=== PATIENT | male | born 1980 | race African-American/Black ===

== ENCOUNTER 2018-03-28 14:53 | Emergency (ER) | payer MEDICAID, OTHER ==
[~2018-03-28] VITALS: Ht 188 cm; Wt 93.0 kg
[~2018-03-28 14:53] MED LIST: ACYCLOVIR400 MG ORAL; CEPHALEXIN500 MG ORAL; CYCLOBENZAPRINE10 MG ORAL; DOXYCYCLINE MO100 MG ORAL; ETODOLAC500 MG PO; IBUPROFEN600 MG ORAL; NKM; NORCO 5-325 TA1 EACH ORAL; PROTONIX40 MG ORAL; ZANTAC150 MG ORAL
[2018-03-28 15:11] VITALS: BP 125/72
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
[2018-03-28] MEDS ORDERED: HYDROcodone/Acetamin 7.5/325 tab ORAL ONE (15:30)
[2018-03-28] MEDS ORDERED: IBUPROFEN600 MG ORAL (16:05)
[2018-03-28] MEDS ORDERED: NORCO 5-325 TA1 EACH ORAL (16:05)
[2018-03-28 16:29] VITALS: BP 125/72
--- NOTE | 2018-03-28 17:43 | Diagnostic Imaging Report ---
Indication: Trauma Technique: XRAY Hand Complete R Comparison: None Findings: No evidence of acute fracture or dislocation. Alignment and joint spaces are preserved. No radiopaque foreign body seen. Impression: No acute fracture or dislocation.
== END 2018-03-28 16:31 | disposition home or self-care (01) ==
LOC: EMR 15:10
DX: S63.501A Unspecified sprain of right wrist, initial encounter (principal); S60.221A Contusion of right hand, initial encounter; V86.59XA Driver of other special all-terrain or other off-road motor vehicle injured in nontraffic accident, initial encounter; Y92.89 Other specified places as the place of occurrence of the external cause; I10 Essential (primary) hypertension
CPT/HCPCS: 99284

== ENCOUNTER 2019-11-17 15:57 | Emergency (ER) | payer MEDICAID ==
[~2019-11-17] VITALS: Ht 188 cm; Wt 90.7 kg
[2019-11-17] MEDS ORDERED: Albuterol ud Inhalation HHN ONE (16:30)
--- NOTE | 2019-11-17 17:21 | Emergency Room Report ---
History of Present Illness General Chief Complaint: Dyspnea/Respdistress Source: Patient Present Illness HPI 39-year-old male presents to the emergency department complaining of increased coughing and feeling short of breath x2 weeks. Patient states on occasion he will have some wheezing and he feels as though he cannot get air out completely. Patient denies history of asthma or allergies. He denies chest pain. Patient reports he is noticing his symptoms more after strenuous activities. He denies dizziness or syncope. He denies personal or familial cardiac history. Patient denies recent illness, fevers, chills, recent travel, increase in sputum production, palpitations or anxiousness. He denies any aggravating or relieving factors at this time. Denies any other significant past medical history. Reports regular smoking hx of THC. Allergies: Coded Allergies: ACETAMINOPHEN (Verified Allergy, Unknown, 11/17/19) Patient History Past Medical History: see triage record Past Surgical History: none Pertinent Family History: none Social History: Reports: smoking - marijuana Reviewed Nursing Documentation: PMH: Agreed; PSxH: Agreed Nursing Documentation-PMH Past Medical History: No Stated History Hx Hypertension: Yes Review of Systems All Other Systems: negative except mentioned in HPI Physical Exam Vital Signs Date Time Temp Pulse Resp B/P (MAP) Pulse Ox O2 Delivery O2 Flow Rate FiO2 11/17/19 16:07 98.2 77 16 125/68 (87) 97 Room Air 11/17/19 16:38 21 Sp02 EP Interpretation: reviewed, normal General Appearance: no apparent distress, alert, GCS 15, non-toxic Head: normocephalic, atraumatic Eyes: bilateral eye normal inspection, bilateral eye PERRL ENT: hearing grossly normal, normal voice Neck: full range of motion Respiratory: chest non-tender, lungs clear, no respiratory distress, no accessory muscle use, speaking full sentences, wheezing - scant expiratory wheezes, other - no sustantial increase in breathing effort. Cardiovascular #1: regular rate, rhythm, no edema Musculoskeletal: back normal, normal range of motion, gait/station normal, non- tender Neurologic: alert, motor strength/tone normal, oriented x3, sensory intact, responsive, speech normal Psychiatric: judgement/insight normal Lymphatic: no adenopathy Medical Decision Making PA Attestation Dr. Cueva is my supervising Physician whom patient management has been discussed with. Diagnostic Impression: Primary Impression: Acute bronchospasm Additional Impression: Exertional shortness of breath ER Course 39-year-old male presents to the emergency department complaining of increased coughing and feeling short of breath x2 weeks. Patient states on occasion he will have some wheezing and he feels as though he cannot get air out completely. Patient denies history of asthma or allergies. He denies chest pain. Patient reports he is noticing his symptoms more after strenuous activities. He denies dizziness or syncope. He denies personal or familial cardiac history. Patient denies recent illness, fevers, chills, recent travel, increase in sputum production, palpitations or anxiousness. He denies any aggravating or relieving factors at this time. Denies any other significant past medical history. Reports regular smoking hx of THC. He reports familial hx of lung cancer. His father and grandfather both secondary to lung ca. Pt. denies night sweats or changes in weight. Ddx considered but are not limited to URI, pneumonia, PE, RI, Bronchitis, asthma , anxiety reaction just to name a few. Vital signs: Pt.is afebrile VS are WNL H&PE are most consistent with acute bronchospasm. Nontoxic in appearance is not in respiratory distress. Patient does not demonstrate acute impending airway compromise. pt. without cardiac hx, non-tachycardic and NAD does not necessitate cardiac work up at this time. ORDERS: -CXR: WNL ED INTERVENTIONS: --Albuterol Nebulized tx. Pt. reports improvement of his symptoms after nebulized tx. -I do not identify an emergent condition at this time. With current presentation , pt. is stable for close outpatient follow up and conservative treatment. D/ w pt. to return promptly to ED with worsening or new symptoms.- Pt. verbalizes' understanding and agreement with proposed treatment plan.proposed treatment plan. Also d/w pt. that his symptoms could be a manifestation of stress/ anxiety and to follow up with his PCP regarding this differential as well. DISCHARGE: At this time pt. is stable for d/c to home. Will provide printed patient care instructions, and any necessary prescriptions. Care plan and follow up instructions have been discussed with the patient prior to discharge. Chest X-Ray Diagnostic Results Chest X-Ray Diagnostic Results : Chest X-Ray Ordered: Yes # of Views/Limited/Complete: 1 View Indication: Shortness of Breath EP Interpretation: Yes BHARATH Xray: Interpretation reviewed, by supervising MD, and agrees with findings. Interpretation: no consolidation, no effusion, no pneumothorax, no acute cardiopulmonary disease Impression: No acute disease Electronically Signed by: Tyra Mario PA-C Last Vital Signs Date Time Temp Pulse Resp B/P (MAP) Pulse Ox O2 Delivery O2 Flow Rate FiO2 11/17/19 16:38 64 16 100 Room Air 21 55 16 11/17/19 16:07 98.2 125/68 (87) Status: improved Disposition: HOME, SELF-CARE Condition: Stable Patient Instructions: Shortness of Breath Additional Instructions: Take medications as directed. Follow up with a Primary Care Provider in 3-5 days, even if your symptoms have resolved. Return sooner to ED if new symptoms occur, or current symptoms become worse. - Please note that this Emergency Department Report was dictated using [employer] technology software, occasionally this can lead to erroneous entry secondary to interpretation by the dictation equipment. Tyra Mario Nov 17, 2019 17:21
[2019-11-17] MEDS ORDERED: ALBUTEROL SULF8.5 GM INH (17:23)
--- NOTE | 2019-11-17 17:25 | NUR ---
ER DISCHARGE NOTE: Patient is cleared to be discharged per ERMD, pt is aox4, on room air, with stable vital signs. pt was given dc and prescription instructions, pt was able to verbalize understanding, pt is able to ambulate with steady gait. pt took all belongings.
[2019-11-17 17:35] VITALS: BP 125/68
--- NOTE | 2019-11-17 17:58 | Diagnostic Imaging Report ---
EXAM: XR Chest, 1 View CLINICAL HISTORY: PAIN TECHNIQUE: Frontal view of the chest. COMPARISON: None FINDINGS: Hardware: None. Lungs/pleura: Normal. No focal consolidation. No pleural effusion or pneumothorax. Heart/mediastinum: Normal. No cardiomegaly. Soft tissues: Unremarkable. Bones: No acute fracture. Upper abdomen: Normal. IMPRESSION: No acute disease identified.
== END 2019-11-17 17:30 | disposition home or self-care (01) ==
LOC: EMR 16:35
DX: J98.01 Acute bronchospasm (principal); R06.02 Shortness of breath; I10 Essential (primary) hypertension; F12.90 Cannabis use, unspecified, uncomplicated; Z88.6 Allergy status to analgesic agent
CPT/HCPCS: 71045; Z7502; 99283

== ENCOUNTER 2020-06-29 14:00 | Emergency (ER) | payer MEDICAID ==
[~2020-06-29] VITALS: Ht 188 cm; Wt 88.9 kg
[~2020-06-29 14:00] MED LIST changes: +ALBUTEROL SULF8.5 GM INH
[2020-06-29 14:17] VITALS: BP 125/82
[2020-06-29 14:43] LABS: APPEARANCE,URINE CLEAR; BILIRUBIN, URINE NEGATIVE (NEGATIVE); GLUCOSE, URINE (UA) NEGATIVE (NEGATIVE); KETONES,URINE NEGATIVE (NEGATIVE); LEUKOCYTE ESTERASE ,URINE 1+ (NEGATIVE); NITRITE,URINE NEGATIVE (NEGATIVE); PH,URINE 6 (4.5-8.0); PROTEIN,URINE NEGATIVE (NEGATIVE); UROBILINOGEN,URINE NORMAL MG/DL (0.0-1.0)
[2020-06-29 14:44] LABS: COLOR,URINE YELLOW
--- NOTE | 2020-06-29 15:04 | Diagnostic Imaging Report ---
EXAM: US Scrotum CLINICAL HISTORY: PAIN TECHNIQUE: Real-time ultrasound of the scrotum with color Doppler and image documentation. COMPARISON: No relevant prior studies available. FINDINGS: Right testicle: Right testis measures a 4.7 x 2.5 x 3.2 cm. No intratesticular mass lesion or torsion. Left testicle: Left testis measures 4.3 x 2.1 x 3.5 cm. No intratesticular mass lesion or torsion. Epididymides: Heterogeneous and vascular epididymis. Scrotum: Moderate-large bilateral hydroceles. Small left varicoceles. IMPRESSION: Heterogeneous and vascular epididymis. Findings suggest epididymitis.
[2020-06-29] MEDS ORDERED: Lidocaine 1% MPF 10mg/ml 5ml INJ ONE (15:45)
[2020-06-29] MEDS ORDERED: DOXYCYCLINE MO100 MG ORAL (15:50)
[2020-06-29 15:53] VITALS: BP 129/73
--- NOTE | 2020-06-29 18:58 | Emergency Room Report ---
History of Present Illness General Chief Complaint: Pain Source: Patient Present Illness HPI 39-year-old male presents the ED complaining of right testicular pain x2 days. Pain is dull, 7 out of 10, nonradiating. Denies any dysuria. Denies any discharge. Denies sick contacts or recent travel. No other aggravating relieving factors. 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 COVID-19 Screening: Negative COVID-19 COVID-19 Testing Source: nasal Patient History Past Medical History: HTN Past Surgical History: none Pertinent Family History: none Social History: Denies: smoking, alcohol use, drug use Immunizations: UTD Reviewed Nursing Documentation: PMH: Agreed; PSxH: Agreed Nursing Documentation-PMH Past Medical History: No Stated History Hx Hypertension: Yes Review of Systems All Other Systems: negative except mentioned in HPI Physical Exam Vital Signs Date Time Temp Pulse Resp B/P (MAP) Pulse Ox O2 Delivery O2 Flow Rate FiO2 06/29/20 14:07 98.2 77 16 125/82 (96) 100 Room Air Sp02 EP Interpretation: reviewed, normal General Appearance: no apparent distress, alert, GCS 15, non-toxic Head: normocephalic, atraumatic Eyes: bilateral eye normal inspection, bilateral eye PERRL ENT: hearing grossly normal, normal pharynx, no angioedema, normal voice Neck: full range of motion, supple/symm/no masses Respiratory: chest non-tender, lungs clear, normal breath sounds, speaking full sentences Cardiovascular #1: regular rate, rhythm, no edema Cardiovascular #2: 2+ carotid (R), 2+ carotid (L), 2+ radial (R), 2+ radial (L), 2+ dorsalis pedis (R), 2+ dorsalis pedis (L) Gastrointestinal: normal bowel sounds, non tender, soft, non-distended, no guarding, no rebound Rectal: deferred Genitourinary: no CVA tenderness, other - R scrotum Musculoskeletal: back normal, normal range of motion, gait/station normal, non- tender Neurologic: alert, motor strength/tone normal, oriented x3, sensory intact, responsive, speech normal Psychiatric: judgement/insight normal, memory normal, mood/affect normal, no suicidal/homicidal ideation Reflexes: 3+ bicep (R), 3+ bicep (L), 3+ tricep (R), 3+ tricep (L), 3+ knee (R), 3+ knee (L) Skin: no rash Lymphatic: no adenopathy Medical Decision Making Diagnostic Impression: Primary Impression: Varicocele Additional Impressions: Epididymitis Hydrocele Qualified Codes: N43.3 - Hydrocele, unspecified ER Course Hospital Course 39-year-old male presents to ED with right testicular pain/swelling. Differential diagnoses include: hydrocele, varicocele, epididymitis, testicular torsion Clinical course Patient placed on stretcher. After initial history and physical I ordered UA and scrotal ultrasound. UA-normal Ultrasound shows hydroceles, varicocele. epididymitis. No evidence of torsion. Good flow to both testicles. I discussed findings with patient. Reassurance given. Safe for discharge with close outpatient follow-up. I will provide referrals. Given Rocephin in ED. Will discharge with doxycycline Diagnosis - epididymitis, varicocele, hydrocele stable and discharged to home with prescription for Doxycycline. Followup with Urology. Return to ED if symptoms recur or worsen Laboratory Tests Test 06/29/20 14:15 Urine Color Yellow Urine Appearance Clear Urine pH 6 (4.5-8.0) Urine Specific [place] 1.015 (1.005-1.035) Urine Protein Negative (NEGATIVE) Urine Glucose (UA) Negative (NEGATIVE) Urine Ketones Negative (NEGATIVE) Urine Blood Negative (NEGATIVE) Urine Nitrite Negative (NEGATIVE) Urine Bilirubin Negative (NEGATIVE) Urine Urobilinogen Normal MG/DL (0.0-1.0) Urine Leukocyte Esterase 1+ (NEGATIVE) H Urine RBC 0 /HPF (0 - 0) Urine WBC 0-2 /HPF (0 - 0) Urine Squamous Epithelial Cells None /LPF (NONE/OCC) Urine Bacteria None /HPF (NONE) Urine Mucus Occasional /LPF CT/MRI/US Diagnostic Results CT/MRI/US Diagnostic Results : Imaging Test Ordered: Scrotal uS Impression Procedure: US Testicular Scrotum EXAM: US Scrotum CLINICAL HISTORY: PAIN TECHNIQUE: Real-time ultrasound of the scrotum with color Doppler and image documentation. COMPARISON: No relevant prior studies available. FINDINGS: Right testicle: Right testis measures a 4.7 x 2.5 x 3.2 cm. No intratesticular mass lesion or torsion. Left testicle: Left testis measures 4.3 x 2.1 x 3.5 cm. No intratesticular mass lesion or torsion. Epididymides: Heterogeneous and vascular epididymis. Scrotum: Moderate-large bilateral hydroceles. Small left varicoceles. IMPRESSION: Heterogeneous and vascular epididymis. Findings suggest epididymitis. Last Vital Signs Date Time Temp Pulse Resp B/P (MAP) Pulse Ox O2 Delivery O2 Flow Rate FiO2 06/29/20 15:53 98.3 79 19 129/73 98 Room Air Status: improved Disposition: HOME, SELF-CARE Condition: Stable Scripts Doxycycline Monohydrate* (DOXYCYCLINE MONOHYDRATE*) 100 Mg Capsule 100 MG ORAL Q12H, #14 CAP 0 Refills Prov: Jared Senior MD 06/29/20 Referrals: Leeroy Bernal MD NON PHYSICIAN (PCP) Patient Instructions: Hydrocele, Adult, Epididymitis, Varicocele Jared Senior MD Jun 29, 2020 18:57
== END 2020-06-29 15:50 | disposition home or self-care (01) ==
LOC: EMR 14:20
DX: I86.1 Scrotal varices (principal); N43.3 Hydrocele, unspecified; N45.1 Epididymitis; I10 Essential (primary) hypertension; Z88.6 Allergy status to analgesic agent
CPT/HCPCS: 76870; 81003; 96372; J0696; Z7502; 99284

== ENCOUNTER 2020-08-16 15:15 | Emergency (ER) | payer MEDICAID ==
[~2020-08-16] VITALS: Ht 188 cm; Wt 88.5 kg
[2020-08-16 15:24] VITALS: BP 116/77
--- NOTE | 2020-08-16 15:44 | Emergency Room Report ---
History of Present Illness General Chief Complaint: Sore Throat Source: Patient Present Illness HPI 39-year-old male presents to the emergency department complaining of 8 out of 10 severity tender canker sores in the right inner cheek. X3 days. Patient reports history of herpes. Patient reports he typically responds well to acyclovir. He denies fevers or chills. He reports pain with swallowing or drinking anything. He denies neck pain/stiffness. He denies rash on the face near the eyes or nose. No other aggravating or relieving factors at this time. Allergies: Coded Allergies: ACETAMINOPHEN (Verified Allergy, Unknown, 11/17/19) COVID-19 Screening Contact w/high risk pt: No Experienced COVID-19 symptoms?: No COVID-19 Testing performed ARNP: No Patient History Past Medical History: see triage record Past Surgical History: none Pertinent Family History: none Reviewed Nursing Documentation: PMH: Agreed; PSxH: Agreed Nursing Documentation-PMH Past Medical History: No Stated History Hx Hypertension: Yes Review of Systems All Other Systems: negative except mentioned in HPI Physical Exam Vital Signs Date Time Temp Pulse Resp B/P (MAP) Pulse Ox O2 Delivery O2 Flow Rate FiO2 08/16/20 15:20 97.9 86 16 116/77 (90) 99 Room Air Sp02 EP Interpretation: reviewed, normal General Appearance: no apparent distress, alert, GCS 15, non-toxic Head: normocephalic, atraumatic Eyes: bilateral eye normal inspection, bilateral eye PERRL ENT: hearing grossly normal, normal pharynx, normal voice, uvula midline, moist mucus membranes, other - Area with grouped canker sores on the right buccal mucosa. No evidence of lesions on the pharynx. No external labial lesions. Neck: full range of motion Respiratory: chest non-tender, lungs clear, normal breath sounds, no respiratory distress, no wheezing, speaking full sentences Cardiovascular #1: regular rate, rhythm Musculoskeletal: back normal, normal range of motion, gait/station normal, non- tender Neurologic: alert, motor strength/tone normal, oriented x3, sensory intact, responsive, speech normal Psychiatric: judgement/insight normal Skin: no rash Lymphatic: no adenopathy Medical Decision Making PA Attestation Dr. Rivera is my supervising Physician whom patient management has been discussed with. Diagnostic Impression: Primary Impression: Stomatitis, viral ER Course 39-year-old male presents to the emergency department complaining of 8 out of 10 severity tender canker sores in the right inner cheek. X3 days. Patient reports history of herpes. Patient reports he typically responds well to acyclovir. He denies fevers or chills. He reports pain with swallowing or drinking anything. He denies neck pain/stiffness. He denies rash on the face near the eyes or nose. No other aggravating or relieving factors at this time. Ddx considered but are not limited to: pharyngitis, strep, ARNP, ludwigs angina, URI Vital signs: are WNL, pt. is afebrile H&PE are most consistent with: Viral stomatitis of the right buccal mucosa. ORDERS: None required at this time as the diagnosis is clinical ED INTERVENTIONS: -Lidocaine Viscous 5ml DISCHARGE: At this time pt. is stable for d/c to home. Will provide printed patient care instructions, and any necessary prescriptions. Care plan and follow up instructions have been discussed with the patient prior to discharge. Last Vital Signs Date Time Temp Pulse Resp B/P (MAP) Pulse Ox O2 Delivery O2 Flow Rate FiO2 08/16/20 15:24 97.9 16 116/77 99 Room Air 08/16/20 15:20 86 Status: improved Disposition: HOME, SELF-CARE Condition: Stable Scripts Lidocaine HCl 2% Viscous (Lidocaine HCl 2% Viscous) 100 Ml Solution 5 ML ORAL QID, #100 ML Prov: Tyra Mario 08/16/20 Acyclovir* (ACYCLOVIR*) 400 Mg Tablet 400 MG ORAL FIVE TIMES A DAY for 5 Days, #25 TAB 1 Refill Prov: Tyra Mario 08/16/20 Patient Instructions: Canker Sores Additional Instructions: Take medications as directed. Follow up with a Primary Care Provider in 3-5 days, even if your symptoms have resolved. Return sooner to ED if new symptoms occur, or current symptoms become worse. - Please note that this Emergency Department Report was dictated using [employer] liaison technology software, occasionally this can lead to erroneous entry secondary to interpretation by the dictation equipment. Tyra Mario Aug 16, 2020 15:44
[2020-08-16] MEDS ORDERED: Lidocaine 2% Visc 15ml soln ORAL ONE (15:45)
[2020-08-16] MEDS ORDERED: ACYCLOVIR400 MG ORAL (15:46)
[2020-08-16] MEDS ORDERED: LIDOCAINE VISC100 ML ORAL (15:47)
== END 2020-08-16 15:53 | disposition home or self-care (01) ==
LOC: EMR 15:42
DX: K12.1 Other forms of stomatitis (principal); K12.0 Recurrent oral aphthae; Z88.6 Allergy status to analgesic agent; I10 Essential (primary) hypertension
CPT/HCPCS: 99282

== ENCOUNTER 2020-08-20 15:52 | Emergency (ER) | payer MEDICAID ==
[~2020-08-20] VITALS: Ht 188 cm; Wt 86.2 kg
[~2020-08-20 15:52] MED LIST changes: +LIDOCAINE VISC100 ML ORAL
[2020-08-20 16:10] VITALS: BP 140/87
--- NOTE | 2020-08-20 16:11 | Emergency Room Report ---
History of Present Illness General Chief Complaint: Skin Rash/Abscess Source: Patient Present Illness HPI 39-year-old male with history of cold sores ever since he was acute here complaining of worsening and spreading of the sores inside mouth, throat, and inside nasal septum. Patient was seen in [place] ER a week ago with similar symptoms and was given acyclovir and reported acyclovir usually helps. Reports that he still has the sores and now they are spreading. Denies being sexually active in the past 2 months. Denies getting any STD check done in the past 8 months however has been sexually active in the past 5 months. Also denies sores anywhere else. Denies any red conjunctive or joint pain. Denies chest pain shortness of breath, headache and dizziness. Denies any fever and chills. Denies vaping, tobacco smoke, however reports that he smokes marijuana. Allergies: Coded Allergies: ACETAMINOPHEN (Verified Allergy, Unknown, 11/17/19) COVID-19 Screening Contact w/high risk pt: No Experienced COVID-19 symptoms?: No COVID-19 Testing performed ACCOUNTING ADVISORY SERVICES MANAGER: No Patient History Past Medical History: see triage record Past Surgical History: none Pertinent Family History: none Immunizations: UTD Reviewed Nursing Documentation: PMH: Agreed; PSxH: Agreed Nursing Documentation-PMH Past Medical History: No Stated History Review of Systems All Other Systems: negative except mentioned in HPI Physical Exam Vital Signs Date Time Temp Pulse Resp B/P (MAP) Pulse Ox O2 Delivery O2 Flow Rate FiO2 08/20/20 15:53 98.1 84 20 140/87 (104) 98 Room Air Sp02 EP Interpretation: reviewed, normal General Appearance: no apparent distress, alert, GCS 15, non-toxic Head: normocephalic, atraumatic Eyes: bilateral eye normal inspection, bilateral eye PERRL ENT: hearing grossly normal, no angioedema, normal voice, pharyngeal erythema, other - Oral sores, inner upper inner lower lip, inner cheeks, pharynx, and the nasal septum without any pus drainage. Airway is patent Neck: full range of motion, supple, supple/symm/no masses Respiratory: chest non-tender, lungs clear, normal breath sounds, speaking full sentences Cardiovascular #1: regular rate, rhythm, no edema Gastrointestinal: normal bowel sounds, non tender, soft, non-distended, no guarding, no rebound Musculoskeletal: back normal Neurologic: alert, oriented Psychiatric: judgement/insight normal, memory normal, mood/affect normal, no suicidal/homicidal ideation Skin: normal color Lymphatic: no adenopathy Medical Decision Making PA Attestation ALL Diagnosis and treatment plan reviewed and discussed with my supervising physician Dr. Borges Diagnostic Impression: Primary Impression: Stomatitis, viral Additional Impressions: Mouth sores Sore in nose ER Course 39-year-old male with history of cold sores ever since he was acute here complaining of worsening and spreading of the sores inside mouth, throat, and inside nasal septum. Patient was seen in [place] ER a week ago with similar symptoms and was given acyclovir and reported acyclovir usually helps. Reports that he still has the sores and now they are spreading. Denies being sexually active in the past 2 months. Denies getting any STD check done in the past 8 months however has been sexually active in the past 5 months. Also denies sores anywhere else. Denies any red conjunctive or joint pain. Denies chest pain shortness of breath, headache and dizziness. Denies any fever and chills. Denies vaping, tobacco smoke, however reports that he smokes marijuana. Ddx considered but are not limited to: strep pharyngitis, URI, tonsillitis, peritonsillar abscess, influneza, Behcet's syndrome, HSV virus, aphthous ulcer, Vital signs: are WNL, pt. is afebrile H&PE are most consistent with: Stomatitis, mouth sores, sores in nose can be viral or bacterial ORDERS: Valtrex, Keflex due to superimposed possibility of staphylococcal infection and not this was responding to nasal septum, mupirocin ointment for nasal septum, prednisone due to swelling and possibility of Behcet's syndrome ED INTERVENTIONS: None required at this time. DISCHARGE: At this time pt. is stable for d/c to home. Will provide printed patient care instructions, and any necessary prescriptions. Care plan and follow up instructions have been discussed with the patient prior to discharge. Advised patient to follow-up with ENT and GI for bronchoscopy and endoscopy also follow primary doctor for further evaluation and possibility of autoimmune disorder that could be causing the stools. Also give a list of STD clinics for patient he will get tested especially to rule out HIV. If worsening symptoms return to the emergency room Last Vital Signs Date Time Temp Pulse Resp B/P (MAP) Pulse Ox O2 Delivery O2 Flow Rate FiO2 08/20/20 15:53 98.1 84 20 140/87 (104) 98 Room Air Disposition: HOME, SELF-CARE Condition: Stable Scripts Mupirocin* (MUPIROCIN*) 22 Gm Oint...g. 1 APPLIC TOPIC THREE TIMES A DAY, #22 GM Prov: Gael Ramos 08/20/20 Lidocaine HCl (Lidocaine HCl Viscous) 100 Ml Solution 15 ML MM TID, #200 ML Prov: Gael Ramos 08/20/20 Prednisone* (PREDNISONE*) 20 Mg Tablet 40 MG ORAL DAILY for 5 Days, #10 TAB Prov: Gael Ramos 08/20/20 Valacyclovir Hcl* (VALTREX*) 500 Mg Tablet 1000 MG ORAL TWICE A DAY for 7 Days, #14 TAB Prov: Gael Ramos 08/20/20 Cephalexin* (KEFLEX*) 500 Mg Capsule 500 MG ORAL EVERY 6 HOURS for 7 Days, #28 CAP Prov: Gael Ramos 08/20/20 Patient Instructions: Stomatitis, [id number] Additional Instructions: Take medication as directed, follow primary care provider for referral to radio installer automobile and ENT. To the bronchoscopy and endoscopy to see if there is any source in the esophagus and nasal septum. Also that may be possibility of Behcet's syndrome. Follow-up with STD clinics to get tested. If worsening symptom return to the emergency room Gael Ramos Aug 20, 2020 16:11
[2020-08-20] MEDS ORDERED: PREDNISONE20 MG ORAL (16:15)
[2020-08-20] MEDS ORDERED: VALACYCLOVIR500 MG ORAL (16:15)
[2020-08-20] MEDS ORDERED: MUPIROCIN22 GM TOPIC (16:15)
[2020-08-20] MEDS ORDERED: LIDOCAINE20 MG/1 M1 MM (16:15)
[2020-08-20] MEDS ORDERED: CEPHALEXIN500 MG ORAL (16:15)
[2020-08-20 16:20] VITALS: BP 138/84
== END 2020-08-20 16:20 | disposition home or self-care (01) ==
LOC: EMR 16:13
DX: K12.1 Other forms of stomatitis (principal); B34.9 Viral infection, unspecified; K13.79 Other lesions of oral mucosa; J34.89 Other specified disorders of nose and nasal sinuses
CPT/HCPCS: 99282

== ENCOUNTER 2020-09-30 12:40 | Emergency (ER) | payer MEDICAID ==
[~2020-09-30] VITALS: Ht 188 cm; Wt 88.5 kg
[~2020-09-30 12:40] MED LIST changes: +LIDOCAINE20 MG/1 M1 MM; +MUPIROCIN22 GM TOPIC; +PREDNISONE20 MG ORAL; +VALACYCLOVIR500 MG ORAL
[2020-09-30 12:50] VITALS: BP 142/81
--- NOTE | 2020-09-30 12:50 | NUR ---
ED Nurse Note: Pt walked in to ED c/o right 4th finger pain and RLE pain/ injury. AAox4, verbally responsive. No SOB, on room air. ERPA at bedside.
[2020-09-30] MEDS ORDERED: Ketorolac 30mg Inj IM ONE (13:00)
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
[2020-09-30] MEDS ORDERED: IBUPROFEN600 M1 ORAL (14:20)
[2020-09-30 14:30] VITALS: BP 142/81
--- NOTE | 2020-09-30 14:30 | NUR ---
ED Nurse Note: Pt cleared by ERPA for discharge. DC instructions was given and explained to pt and verbalized understanding of teachings. prescription sent to the pharmacy. All medical deviecs such as ID band removed. Pt is AAO x4, ambulatory and left with all personal belongings.
--- NOTE | 2020-09-30 16:26 | Diagnostic Imaging Report ---
Indication: Pain, trauma Technique: 3 views of the right fifth finger Comparison: none Findings: No acute fracture. No dislocation. Joint spaces are preserved. No radiopaque foreign body Impression: Negative
--- NOTE | 2020-09-30 16:28 | Diagnostic Imaging Report ---
Indication: Pain, trauma Technique: 2 views of the right tibia and fibula Comparison: none Findings: No acute fracture. No dislocation. Joint spaces are preserved. No radiopaque foreign body Impression: Negative
== END 2020-09-30 14:30 | disposition home or self-care (01) ==
LOC: EMR 14:20
DX: S63.634A Sprain of interphalangeal joint of right ring finger, initial encounter (principal); S80.11XA Contusion of right lower leg, initial encounter; S60.041A Contusion of right ring finger without damage to nail, initial encounter; Z88.6 Allergy status to analgesic agent; V86.56XA Driver of dirt bike or motor/cross bike injured in nontraffic accident, initial encounter; Y92.9 Unspecified place or not applicable
CPT/HCPCS: 29130; 73140; 73590; 96372; J1885; Z7502; 99284

== ENCOUNTER 2020-10-02 22:36 | Emergency (ER) | payer MEDICAID ==
[~2020-10-02] VITALS: Ht 188 cm; Wt 88.5 kg
[~2020-10-02 22:36] MED LIST changes: +IBUPROFEN600 M1 ORAL
[2020-10-02 22:45] VITALS: BP 133/75
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
--- NOTE | 2020-10-02 22:45 | NUR ---
Note jason in EDM - 10/02/20 at 2307 by BEATRIZ ED Nurse Note: Pt back from [facility] in stable condition.
[2020-10-02] MEDS ORDERED: ROXICODONE15 MG ORAL (23:12)
--- NOTE | 2020-10-02 23:12 | NUR ---
ED Nurse Note: Spoke with EDMD pt reports allergy to Tylenol, pt unable to take prescribed [place].
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
[2020-10-02] MEDS ORDERED: HYDROcodone/Acetamin 5/325 tab ORAL ONE (23:15)
[2020-10-02] MEDS ORDERED: Morphine Sulfate 2mg/ml Inj(IV/IM USE ONLY) IM ONE (23:15)
[2020-10-02 23:26] VITALS: BP 141/80
--- NOTE | 2020-10-02 23:26 | NUR ---
ER DISCHARGE NOTE: Patient is cleared to be discharged per ERMD, pt is aox4, on room air, with stable vital signs. Finger splint placed on pt, pt was given dc and prescription instructions, pt was able to verbalize understanding, pt id band removed. pt is able to ambulate with steady gait. pt took all belongings.
== END 2020-10-02 23:26 | disposition home or self-care (01) ==
LOC: EMR 22:50
DX: S60.041D Contusion of right ring finger without damage to nail, subsequent encounter (principal); S63.632D Sprain of interphalangeal joint of right middle finger, subsequent encounter; W23.1XXD Caught, crushed, jammed, or pinched between stationary objects, subsequent encounter; Z88.6 Allergy status to analgesic agent
CPT/HCPCS: 96372; J2270; Z7502; 99283

== ENCOUNTER 2021-01-02 09:57 | Emergency (ER) | payer MEDICAID ==
[~2021-01-02] VITALS: Ht 188 cm; Wt 86.2 kg
[~2021-01-02 09:57] MED LIST changes: +ROXICODONE15 MG ORAL
[2021-01-02] MEDS ORDERED: DOXYCYCLINE MO100 MG ORAL (10:19)
--- NOTE | 2021-01-02 10:19 | Emergency Room Report ---
History of Present Illness General Chief Complaint: Male Urogenital Problems Source: Patient Present Illness HPI 40-year-old male, no past medical history no surgical history presents with dysuria, penile discharge, left scrotal pain x4 days severity is mild, constant patient had unprotected sex no fevers no chills patient denies any other complaints denies any aggravating relieving factors patient presents for evaluation and treatment Allergies: Coded Allergies: ACETAMINOPHEN (Verified Allergy, Unknown, 11/17/19) COVID-19 Screening Contact w/high risk pt: No Experienced COVID-19 symptoms?: No COVID-19 Testing performed PLANNING AIDE: No Patient History Past Medical History: see triage record Social History: Reports: drug use - Marijuana Reviewed Nursing Documentation: PMH: Agreed; PSxH: Agreed Nursing Documentation-PMH Hx Hypertension: Yes Review of Systems All Other Systems: negative except mentioned in HPI Physical Exam Vital Signs Date Time Temp Pulse Resp B/P (MAP) Pulse Ox O2 Delivery O2 Flow Rate FiO2 01/02/21 10:03 98.1 78 18 130/80 (97) 98 Room Air General Appearance: well appearing, no apparent distress Head: normocephalic, atraumatic ENT: hearing grossly normal, normal voice Neck: full range of motion, supple Respiratory: no respiratory distress, speaking full sentences 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 patient with scrotal pain, no redness no erythema no tenderness at the epididymis cremasteric reflex intact bilaterally, penis unremarkable no discharge Neurologic: alert, normal gait Psychiatric: mood/affect normal Skin: no rash Medical Decision Making Diagnostic Impression: Primary Impression: STI (sexually transmitted infection) ER Course 40-year-old male presents with possible STI patient counseled to follow-up with Department of Public Health/PCP will provide patient with ceftriaxone 500 mg and azithromycin will also discharge patient with 14 days of doxycycline Strict return precautions were discussed Last Vital Signs Date Time Temp Pulse Resp B/P (MAP) Pulse Ox O2 Delivery O2 Flow Rate FiO2 01/02/21 10:03 98.1 78 18 130/80 (97) 98 Room Air Disposition: HOME, SELF-CARE Condition: Stable Scripts Doxycycline Monohydrate* (DOXYCYCLINE MONOHYDRATE*) 100 Mg Capsule 100 MG ORAL Q12H for 14 Days, #28 CAP 0 Refills Prov: Lucas Delatorre MD 3/25/21 Referrals: NON PHYSICIAN (PCP) [facility] Patient Instructions: Sexually Transmitted Disease, [id number]-[id number] Additional Instructions: The patient was provided with discharge instructions, notified to follow-up with a primary care doctor and or specialist in the next 24-48 hours, and to return to the ED if they have worsening of their symptoms. Please note that this report is being documented using DRAGON technology. This can lead to erroneous entry secondary to incorrect interpretation by the dictating instrument. Please follow-up with the department of health or PCP to get a panel of STD testing Lucas Delatorre MD Jan 02, 2021 10:19
[2021-01-02] MEDS: cefTRIAXone 500mg Inj IM ONE (10:22)
[2021-01-02] MEDS: Azithromycin 250mg tab ORAL ONE (10:23)
[2021-01-02] MEDS: Lidocaine 1% MPF 10mg/ml 5ml INJ ONE (10:23)
[2021-01-02 10:32] VITALS: BP 130/80
[2021-01-02 10:34] VITALS: BP 130/80
--- NOTE | 2021-01-02 10:36 | NUR ---
discharged home with instruction and rx follow up with pmd
== END 2021-01-02 10:37 | disposition home or self-care (01) ==
LOC: EMR 10:12
DX: A64 Unspecified sexually transmitted disease (principal); I10 Essential (primary) hypertension; F12.90 Cannabis use, unspecified, uncomplicated; Z88.6 Allergy status to analgesic agent
CPT/HCPCS: 96372; J0696; Q0144; Z7502; 99283